=== PATIENT | female | born 1990 | race Two or more races ===

== ENCOUNTER 2017-05-01 20:31 | Emergency (ER) | payer OTHER ==
[~2017-05-01] VITALS: Ht 154.9 cm; Wt 65.0 kg
[2017-05-02 00:11] LABS: BLOOD UREA NITROGEN 5 mg/dL (7-18)
[2017-05-02 01:51] VITALS: BP 99/71
== END 2017-05-02 01:54 | disposition home or self-care (01) ==
LOC: EDBD 20:31 → ED 23:49
DX: O20.0 Threatened abortion (principal); Z3A.11 11 weeks gestation of pregnancy
CPT/HCPCS: 36415; 76801; 80048; 81001; 82040; 84702; 85025; 86901; 87086; 99285